=== PATIENT | female | born 1980 | race Caucasian/White ===

== ENCOUNTER 2016-10-14 20:02 | Emergency (ER) | payer OTHER ==
[2016-10-14] MEDS ORDERED: diphenhydrAMINE 50 MG/1 ML VIAL IVP ONE (20:24)
[2016-10-14] MEDS ORDERED: Prochlorperazine Edisylate Inj 10mg/2ml vial IVP ONE (20:24)
[2016-10-14] MEDS ORDERED: Sodium Chloride 0.9% 1,000 ML PRIMARY IV ONE (20:24)
[2016-10-14] MEDS ORDERED: DEXAMETHASONE PF 10 MG/1 ML VIAL IV ONE (20:24)
[2016-10-14] MEDS ORDERED: KETOROLAC 15 MG/1 ML VIAL IVP ONE (20:24)
[2016-10-14] MEDS ORDERED: Magnesium Sulfate 2gm (Premix) 2 GM in Premix 1 BAG IV ONE (20:24)
[2016-10-14 20:29] VITALS: TEMP 96.8
[2016-10-14 20:34] LABS: HEMATOCRIT 37.3 % (37.0-47.0); HEMOGLOBIN 13.3 g/dL (12.0-16.0); MEAN CORPUSCULAR HEMOGLOBIN 31.3 PG (27-31); MEAN CORPUSCULAR HGB CONC 35.7 g/dL (33-37); MEAN CORPUSCULAR VOLUME 87.8 FL (81-99); MEAN PLATELET VOLUME 9.6 FL (7.4-12.2); RED BLOOD COUNT 4.25 10^6/uL (4.20-5.40)
--- NOTE | 2016-10-14 20:34 | PDOC ---
Headache HPI - General Chief Complaint: Headache Stated Complaint: MIGRAINE HEADACHE Date Seen by Provider: 10/14/16 Time Seen by Provider: 20:15 Source: POSITIVE: Patient, Spouse Exam Limitations: POSITIVE: No limitations Nurse's Notes Reviewed & Considered: Yes - History of Present Illness Initial Comments: This is a very pleasant 35-year-old female complaining of migraine headache. Patient with a history of migraine headaches and a recent vertebral dissection. She was here in [place] to participate in the solar eclipse observation and subsequently developed migraine headache with photophobia, nausea and vomiting, sensitivity to sound, and dizziness. She denies any fever chills or sweats, no diarrhea, no myalgias, no rashes. Body Location Affected: REPORTS: Head Timing: REPORTS: Abrupt Duration: 1-3 hours Severity: Severe Quality: REPORTS: "Pain" Associated Symptoms: REPORTS: Sensitivity to Light, Nausea, Vomiting, Dizziness Exacerbated by: REPORTS: Light, Noise, Movement, Position Any Prior Injuries Related to Current Complaint?: Yes (vertebral dissection) - Patient Home Medications Home Medications: Home Medications NK [No Home Medications Reported] 10/14/16 - Patient Allergies Allergies/Adverse Reactions: Allergies Allergy/AdvReac Type Severity Reaction Status Date / Time No Known Allergies Allergy Verified 10/14/16 20:11 Past Medical History - heen HEENT History: Denies History Cardiovascular History: Denies History Respiratory History: Denies History Gastrointestinal History: Denies History Genitourinary History: Denies History Endocrine History: Denies History Musculoskeletal History: Denies History Neurological History: Migraines Additional Neurological History: VERTEBRAL DISSECTION 03/12 Blood Disorders: Denies History Psychiatric History: Denies History History of Sexually Transmitted Diseases: No Female Reproductive History: Endometriosis Obstetrical History: Delivery Cancer History: Denies History In Past Year Been Physically Harmed or Verbally Threatened: No History of MDRO: No History of Other Communicable Diseases: No Tobacco Use: Never Smoker Alcohol Use: None Substance Use Type: None Previous Surgical History: No Anesthesia Reactions: No Malignant Hyperthermia: No Family History of Malignant Hyperthermia: No Significant Family History: No pertinent family hx ROS Constitution: REPORTS: Denies Symptoms Cardiovascular: REPORTS: Denies Cardiac Symptoms Respiratory: REPORTS: Denies Resp Symptoms Neurological: REPORTS: Headache, Dizziness Gastrointestinal: REPORTS: Nausea, Vomitting Endocrine: REPORTS: Denies Symptoms Musculoskeletal: REPORTS: Denies MS Symptoms Genitourinary: REPORTS: Denies Symptoms Eyes: REPORTS: Denies Symptoms ENT: REPORTS: Denies Symptoms Skin: REPORTS: Denies Skin Symptoms Lympathic: REPORTS: Denies Lympathic Symptoms Immunologic: POSITIVE: Denies Symptoms Psychiatric: POSITIVE: Denies Psych Symptoms Headache Exam - General Appearance General Appearance: POSITIVE: Alert, Cooperative, No Evidence of Trauma, Moderate Distress - HEENT Head / Face: POSITIVE: Atraumatic, Normal Inspection, No Facial Swelling Eyes: POSITIVE: Inspection Normal, PERRL, EOM's Intact, Eyelids Uninjured, Conjunctivae Uninjured, No Nystagmus, No Globe Trauma, Sclera Normal Ears: POSITIVE: Ears Normal Inspection, Auricle Normal Nose: POSITIVE: Inspection Normal, No Apparent Trauma, Nares Normal, No CSF Leak Oropharynx: POSITIVE: External Inspection Nml, Pharynx Inspect. Nml, Airway Intact, Voice Normal, Moist Mucous Membranes, No Oral Injury, Lips Normal, Gums Normal, No Drooling, No Thrush Dental: POSITIVE: No Dental Injury - Pupil Size Pupil Size: 5 mm: Bilateral - Neck Neck: POSITIVE: Normal Inspection, Supple - Respiratory / CVS Respiratory / CVS: POSITIVE: Chest Non-Tender, No Respiratory Distress, Heart Sounds Normal, Regular Rate/Rhythm, Breath Sounds Normal Peripheral Pulses: Radial (R): 4+ - Abdomen Abdomen: Soft: (All Quadrants), Normal Bowel Sounds: (All Quadrants), Denies Tenderness: (All Quadrants), No Splenomegaly: (All Quadrants), No Hepatomegaly: (All Quadrants), No Guarding: (All Quadrants), No Rebound: (All Quadrants), No Palpable Pulse: (All Quadrants), No Palpabale Mass: (All Quadrants), No Distention: (All Quadrants), No Rigidity: (All Quadrants) - Skin Skin: POSITIVE: Intact, Normal Palpation - Extremities Extremity: Non-Tender: (All Extremities), Normal ROM: (All Extremities), Normal Inspection: (All Extremities), Pelvis Stable: (All Extremities) - Neuro / Psych Higher Functions: POSITIVE: Alert, Oriented x3, Normal Speech, Mood Appropriate , Affect Appropriate Cranial Nerves: POSITIVE: Normal As Tested, No Evidence of Acute CVA Cerebellar: POSITIVE: Normal As Tested Sensorimotor: POSITIVE: No Motor Deficits, No Sensory Deficits, Reflexes Normal Reflexes: Patellar (R): 4+, Patellar (L): 4+, Radial (R): 4+, Radial (L): 4+ Headache Progress - Results Reviewed by me Xrays/CTs/US Reviewed by me: Yes Discussed with Radiologist: Yes Lab Results Reviewed: Yes Lab Results:: Laboratory Results 10/14/16 Range/Units 20:15 WBC 8.20 (4.8-10.8) 10^3/uL RBC 4.25 (4.20-5.40) 10^6/uL Hgb 13.3 (12.0-16.0) g/dL Hct 37.3 (37.0-47.0) % MCV 87.8 (81-99) FL MCH 31.3 H (27-31) PG MCHC 35.7 (33-37) g/dL RDW Std Deviation 37.7 L (39-50) fL RDW Coeff of Curry 12.0 (11.5-14.5) % Plt Count 282 (140-350) 10*3/uL MPV 9.6 (7.4-12.2) FL PT 11.2 (9.7-11.4) secs INR 1.06 (0.00-5.90) N/A Sodium 138 (135-145) meq/L Potassium 3.5 L (3.8-5.2) meq/L Chloride 107 (98-112) meq/L Carbon Dioxide 21 L (23-33) meq/L Anion Gap 10 (5-20) BUN 16 (7-22) mg/dL Creatinine 0.8 (0.50-1.20) mg/dL Estimated GFR > 60 (>60 ml/min/1.73m(2)) BUN/Creatinine Ratio 20.00 (6-20) Glucose 90 (78-110) mg/dL Calculated Osmolality 286.0 (267-292) mOsm/kg Calcium 9.2 (8.7-10.7) mg/dL Magnesium 2.2 (1.6-2.4) mg/dL Total Bilirubin 0.4 (0.3-1.2) mg/dL AST 18 (8-39) IU/L ALT 30 (9-52) IU/L Alkaline Phosphatase 43 (38-126) IU/L Total Protein 7.2 (6.1-8.0) g/dL Albumin 4.1 (3.5-4.8) g/dL Globulin 3.1 (2.50-4.10) g/dL Albumin/Globulin Ratio 1.30 (1.3-2.0) mg/g TSH 1.38 (0.2700-4.2000) uIU/mL - Patient's Progress Pain Medication Addressed: POSITIVE: Yes Re-Examine Time:: 22:03 Status: POSITIVE: Improved, Pain Almost Comp Relieved MDM / ED Course: Patient was evaluated, an IV started, blood drawn and sent to the lab for studies, CT examination was obtained. Findings: CTA of the head and neck were obtained and show no acute abnormalities. CBC is within normal limits, comprehensive metabolic panel is unremarkable. TSH is normal. Assessment: Migraine headache improved. Plan: Discharge home, follow-up with primary care physician upon return to [place]. - Consult Counseled: POSITIVE: Patient, Family, RE: Lab Results, RE: Radiology Results, RE : DX, RE: Need for F/U Patient Care Time - Estimated PCT Patient Care Time (In Minutes): 50 Vital Signs - Recent Vital Signs Vital Signs: Vital Signs (Last 8 hours) Temp Pulse Resp BP Pulse Ox 10/14/16 21:56 66 14 94 10/14/16 20:02 96.8 F 85 18 121/91 99 - VS Reviewed Vital Signs Reviewed: Yes Discharge Clinical Impression: Migraine Discharge Disposition: Discharged to Home Condition: Stable Patient Instructions Given at Discharge: Migraine Headache (ED)
[2016-10-14 20:43] LABS: BLOOD UREA NITROGEN 16 mg/dL (7-22); CALCIUM 9.2 mg/dL (8.7-10.7); EST GLOMERULAR FILTRATION > 60 (>60 ml/min/1.73m(2)); MAGNESIUM 2.2 mg/dL (1.6-2.4); SERUM ALBUMIN 4.1 g/dL (3.5-4.8)
--- NOTE | 2016-10-14 21:40 | DI ---
CT ANGIOGRAM OF THE NECK, 10/14/2016 8:28 PM : Clinical History: Migraine headaches. History of vertebral artery dissection secondary to [manipulati on. Previous Exam: None at this facility. Scans are performed from the sternal notch to of the neck to the base of the skull following IV admin istration of 95 mL of Isovue 300. Proprietary automated bolus tracking software was not used to verif y the timing of the injection. The base of the neck and thoracic inlet are normal. There are no abnormal cervical lymph nodes. The c ommon carotid arteries are normal from their origins to the bifurcations. The internal and external c arotid arteries in the neck region are normal. The internal carotid arteries to the base of the skull are also normal. Both vertebral arteries are visualized and are normal. The left vertebral artery is the dominant vessel. There is no evidence of a residual vertebral artery dissection. The basilar art irasema and basilar tip are normal. The left posterior communicating artery is normal. There is no right posterior communicating artery. The anterior communicating artery and the A1 and A2 branches and the M1-M3 branches bilaterally are normal. READING: Normal CT angiogram of the neck. There is no evidence of a residual vertebral artery dissection. The [place] [facility] [place] is normal.
[2016-10-14 22:53] VITALS: RESP 14
--- NOTE | 2016-10-14 22:57 | DI ---
CT HEAD SCAN WITHOUT AND WITH IV CONTRAST, 10/14/2016 8:28 PM : Clinical History: Migraine headache. 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 Previous Exam: None at this facility. Scans are obtained from the foramen magnum to the vertex without and with IV contrast. This is the [facility] bolus of contrast used for the CT angiogram of the neck. The 4th, 3rd, and lateral ventricles are of normal size, shape, position, and contour for the patient 's age. There are no abnormal areas of increased or decreased density. There are no extracerebral man tles or shift of the midline structures. Bone window evaluation is normal. The paranasal sinuses are normal. There is a 9 mm nodule located in the scalp along the left frontoparietal region toward the v ertex. The coronal suture. This may be a sebaceous cyst or other scalp lesion. READIN. Normal non contrast CT head scan. 2. There is a left-sided scalp lesion near the coronal suture just to the left of midline. This may be a sebaceous cyst or other scalp lesion.
== END 2016-10-14 22:46 | disposition home or self-care (01) ==
LOC: ER 20:02
DX: G43.009 Migraine without aura, not intractable, without status migrainosus (principal); H53.143 Visual discomfort, bilateral; R11.2 Nausea with vomiting, unspecified; R42 Dizziness and giddiness
CPT/HCPCS: 70470; 70498; 80053; 83735; 84443; 85027; 85610; 96365; 96375; 99283 ×2; J0780; J1100; J1200; J1885; J3475; J7030